=== PATIENT | male | born 1945 | race Caucasian/White ===

== ENCOUNTER 2023-03-15 10:23 | Inpatient (IN) | payer OTHER ==
[~2023-03-15] VITALS: Ht 167.6 cm; Wt 100.0 kg
[2023-03-15] MEDS ORDERED: FUROSEMIDE 40 MG/4 ML VIAL IV ONE ×3 (10:45→22:00)
[2023-03-15 11:05] LABS: Basophils # (auto) 0 10 ^3/uL (0-0.2); Basophils % (auto) 0.1 % (0.0-2.0); Eosinophils # (auto) 0 10 ^3/uL (0-0.8); Hematocrit 35.8 % (41.0-53.0); Hemoglobin 11.2 g/dL (13.5-17.5); Lymphocytes # (auto) 0.4 10 ^3/uL (0.4-5.4); Lymphocytes % (auto) 4.6 % (10.0-50.0); Mean Corpuscular Hemoglobin 27.4 pg (28.0-32.0); Mean Corpuscular Hgb Conc. 31.3 g/dL (32.0-36.0); Mean Corpuscular Volume 87.8 fL (80.0-100.0); Monocytes # (auto) 0.7 10 ^3/uL (0-1.3); Monocytes % (auto) 7.3 % (0.0-12.0); Red Blood Cells 4.08 10^6/uL (4.5-5.90); White Blood Cell 9.1 10^3/uL (4.4-10.8)
[2023-03-15 11:16] LABS: Alanine Aminotransferase 23 U/L (7-40); Albumin 3.5 g/dL (3.2-4.8); Alkaline Phosphatase 86 U/L (46-116); Anion Gap 7 (5-15); Aspartate Aminotransferase 27 U/L (13-40); BUN/Creatinine Ratio 23.9 (10.0-20.0); Blood Urea Nitrogen 26 mg/dL (9-23); Calcium 8.1 mg/dL (8.7-10.4); Carbon Dioxide 29 mmol/L (20-30); Chloride 104 mmol/L (98-107); Glucose 120 mg/dL (74-106); Lipase 24 U/L (12-53); Magnesium 1.9 mg/dL (1.6-2.6); Potassium 3.1 mmol/L (3.5-5.1); Sodium 140 mmol/L (136-145); Total Protein 6.1 g/dL (5.7-8.2)
[2023-03-15 11:20] LABS: INR 1.46 (0.9-1.15)
[2023-03-15 11:40] VITALS: PULSE 92; RESP 18; O2SAT 94
[2023-03-15] MEDS ORDERED: POTASSIUM EFFERVESENT TAB 25 MEQ PO ONE (12:00)
[2023-03-15] MEDS ORDERED: hydrALAZINE HCL 20 MG/ML VL IV PRN (12:30)
[2023-03-15] MEDS ORDERED: MORPHINE SULFATE INJ 2 MG/ml SYRG IV PRN (12:30)
[2023-03-15] MEDS ORDERED: NITROGLYCERIN 0.4 MG SL TAB SL PRN (12:30)
[2023-03-15] MEDS ORDERED: cefTRIAXone 1GM/50ML D5W 50 ML IV ONE (12:30)
[2023-03-15] MEDS ORDERED: LIDOCAINE 2% JELLY 11ml (GLYDO) ONE (13:04)
[2023-03-15] MEDS ORDERED: LIDOCAINE 2% JELLY 11ml (GLYDO) UR ONE (13:15)
[2023-03-15 13:46] LABS: Base Excess 2.4 mmol/L (-2.0-2.0)
[2023-03-15 13:49] LABS: Urine Bacteria NONE SEEN /hpf (None Seen); Urine Blood TRACE /uL (Negative); Urine Clarity Clear (Clear); Urine Color Yellow (Yellow); Urine Hyaline Cast MOD /lpf (0 - 2); Urine Mucus FEW (None Seen); Urine Protein, UAD 2+ (Negative); Urine WBC 2 /hpf (0 - 3)
[2023-03-15] MEDS: AZITHROMYCIN 500MG/ 250ML 250 ML IV SCH (14:28)
[2023-03-15 15:03] LABS: LDL Cholesterol 37 mg/dL (< 100); Triglycerides 62 mg/dL (< 150)
[2023-03-15 15:05] LABS: Cholesterol 87 mg/dL (< 200); HDL Cholesterol 34 mg/dL (40-59)
[2023-03-15] MEDS ORDERED: AMIODARONE BOLUS KIT 100 ML IV ONE (19:15)
[2023-03-15 19:40] VITALS: PULSE 89; RESP 20; O2SAT 96
[2023-03-15 20:25] LABS: COVID19 ANTIGEN SOFIA FIA NEGATIVE (NEGATIVE)
[2023-03-15 20:26] LABS: Rapid Influenza A Negative (Negative); Rapid Influenza B Negative (Negative)
[2023-03-15] MEDS: APIXABAN 5 MG TAB PO SCH (22:18)
[2023-03-15] MEDS: LISINOPRIL 10 MG TAB PO SCH (22:18)
[2023-03-15] MEDS: CARVEDILOL 3.125 MG TAB PO SCH (22:18)
[2023-03-15] MEDS: AMIODARONE HCL 200 MG TAB PO SCH (22:18)
[2023-03-15 23:36] VITALS: BP 110/50; PULSE 74; RESP 18; TEMP 96.6; O2SAT 97
[2023-03-15] MEDS ORDERED: TAMS0.4C36 PO (23:58)
[2023-03-15] MEDS ORDERED: LOSA25TA5 (23:58)
[2023-03-15] MEDS ORDERED: SIMV40TA18 PO (23:58)
[2023-03-15] MEDS ORDERED: APIX5TAB PO (23:58)
[2023-03-15] MEDS ORDERED: CITA-77 PO (23:58)
[2023-03-16] VITALS (7 sets, daily range): BP systolic 125–160; BP diastolic 45–71; PULSE 63–109; RESP 16–20; TEMP 97.7–98.1; O2SAT 94–99
[2023-03-16] MEDS ORDERED: FURO1TAB33 PO
[2023-03-16 06:54] LABS: Basophils # (auto) 0 10 ^3/uL (0-0.2); Basophils % (auto) 0.1 % (0.0-2.0); Eosinophils # (auto) 0 10 ^3/uL (0-0.8); Hemoglobin 10.1 g/dL (13.5-17.5); Lymphocytes # (auto) 0.8 10 ^3/uL (0.4-5.4); Neutrophils # (auto) 6.8 10 ^3/uL (1.6-8.6)
[2023-03-16 06:56] LABS: Hematocrit 32.7 % (41.0-53.0); Lymphocytes % (auto) 9.4 % (10.0-50.0); Mean Corpuscular Hemoglobin 26.8 pg (28.0-32.0); Mean Corpuscular Hgb Conc. 30.8 g/dL (32.0-36.0); Mean Corpuscular Volume 87.1 fL (80.0-100.0); Monocytes # (auto) 0.6 10 ^3/uL (0-1.3); Monocytes % (auto) 7.5 % (0.0-12.0); Red Blood Cells 3.76 10^6/uL (4.5-5.90); Red Cell Distribution Width 17.3 % (11.8-14.3); White Blood Cell 8.2 10^3/uL (4.4-10.8)
[2023-03-16 06:57] LABS: Chloride 103 mmol/L (98-107); Sodium 141 mmol/L (136-145)
[2023-03-16 06:58] LABS: Anion Gap 5 (5-15); Calcium 7.9 mg/dL (8.7-10.4); Carbon Dioxide 33 mmol/L (20-30)
[2023-03-16 07:03] LABS: BUN/Creatinine Ratio 19.2 (10.0-20.0); Blood Urea Nitrogen 20 mg/dL (9-23); Glucose 97 mg/dL (74-106)
[2023-03-16] MEDS ORDERED: INFLUENZA QUAD 2023-2024 0.5 ML SYRG IM ONE (07:15)
[2023-03-16] MEDS ORDERED: POTASSIUM CHL 20 Meq TABLET PO ONE (08:00)
[2023-03-16] MEDS: APIXABAN 5 MG TAB PO SCH ×2 (09:04→20:46)
[2023-03-16] MEDS: cefTRIAXone 1GM/50ML D5W 50 ML IV SCH (09:04)
[2023-03-16] MEDS: AMIODARONE HCL 200 MG TAB PO SCH ×2 (09:05→20:45)
[2023-03-16] MEDS: CARVEDILOL 3.125 MG TAB PO SCH ×2 (09:06→20:46)
[2023-03-16] MEDS: LISINOPRIL 10 MG TAB PO SCH ×2 (09:06→20:46)
[2023-03-16] MEDS: AZITHROMYCIN 500MG/ 250ML 250 ML IV SCH (10:04)
[2023-03-16] MEDS: FUROSEMIDE 40 MG/4 ML VIAL IV SCH (17:15)
[2023-03-17] VITALS (7 sets, daily range): BP systolic 134–148; BP diastolic 53–63; PULSE 62–69; RESP 18–20; TEMP 36.6; O2SAT 98–100
[2023-03-17] MEDS: FUROSEMIDE 40 MG/4 ML VIAL IV SCH ×2 (06:00→17:46)
[2023-03-17 06:58] LABS: Basophils # (auto) 0 10 ^3/uL (0-0.2); Eosinophils # (auto) 0 10 ^3/uL (0-0.8); Hemoglobin 10.5 g/dL (13.5-17.5); Lymphocytes # (auto) 0.9 10 ^3/uL (0.4-5.4); White Blood Cell 8.9 10^3/uL (4.4-10.8)
[2023-03-17 07:01] LABS: Anion Gap 9 (5-15); Carbon Dioxide 29 mmol/L (20-30); Chloride 103 mmol/L (98-107); Potassium 3.7 mmol/L (3.5-5.1); Sodium 141 mmol/L (136-145)
[2023-03-17 07:02] LABS: Calcium 8.1 mg/dL (8.7-10.4)
[2023-03-17 07:06] LABS: Eosinophils % (auto) 0.2 % (0.0-7.0); Glucose 95 mg/dL (74-106); Hematocrit 33.9 % (41.0-53.0); Mean Corpuscular Hemoglobin 27.7 pg (28.0-32.0); Mean Corpuscular Volume 89.3 fL (80.0-100.0); Monocytes # (auto) 0.7 10 ^3/uL (0-1.3); Monocytes % (auto) 7.8 % (0.0-12.0); Neutrophils # (auto) 7.3 10 ^3/uL (1.6-8.6); Nucleated Red Blood Cells % 0.2 %; Red Cell Distribution Width 18.1 % (11.8-14.3)
[2023-03-17 07:07] LABS: BUN/Creatinine Ratio 20.5 (10.0-20.0); Blood Urea Nitrogen 23 mg/dL (9-23)
[2023-03-17] MEDS: APIXABAN 5 MG TAB PO SCH ×2 (08:59→21:24)
[2023-03-17] MEDS: cefTRIAXone 1GM/50ML D5W 50 ML IV SCH (08:59)
[2023-03-17] MEDS: AMIODARONE HCL 200 MG TAB PO SCH ×2 (08:59→21:24)
[2023-03-17] MEDS: CARVEDILOL 3.125 MG TAB PO SCH ×2 (09:00→21:25)
[2023-03-17] MEDS: AZITHROMYCIN 500MG/ 250ML 250 ML IV SCH (09:32)
[2023-03-17] MEDS: LISINOPRIL 10 MG TAB PO SCH ×2 (10:22→21:25)
== END 2023-03-17 22:53 | DRG 189 ==
LOC: ER 10:23 → TELE 12:34 → TELE-CENTR 23:00
PROVIDERS: ADMIT Internal Medicine; ATTEND Student in an Organized Health Care Education/Training Program
DX: J96.01 Acute respiratory failure with hypoxia (principal); J15.9 Unspecified bacterial pneumonia; I50.23 Acute on chronic systolic (congestive) heart failure; D68.59 Other primary thrombophilia; I11.0 Hypertensive heart disease with heart failure; I48.91 Unspecified atrial fibrillation; Z23 Encounter for immunization; D64.9 Anemia, unspecified; E78.5 Hyperlipidemia, unspecified; E87.6 Hypokalemia; F32.9 Major depressive disorder, single episode, unspecified; I08.0 Rheumatic disorders of both mitral and aortic valves; I77.810 Thoracic aortic ectasia; N30.90 Cystitis, unspecified without hematuria; Z82.3 Family history of stroke; Z20.822 Contact with and (suspected) exposure to COVID-19
CPT/HCPCS: 36415; 36600; 71045; 71250; 80048; 80053; 80061; 81001; 82805; 83036; 83690; 83735; 83880; 84484; 85025; 85610; 87040; 87426; 87804; 90686; 93005; 93306; 96365; 96375; 97163; 99291; G0378; J0696

== ENCOUNTER 2023-03-24 21:56 | Emergency (ER) | payer OTHER ==
[~2023-03-24] VITALS: Ht 167.6 cm; Wt 93.5 kg
[~2023-03-24 21:56] MED LIST: APIX5TAB PO; CITA-77 PO; FURO1TAB33 PO; LOSA25TA5; SIMV40TA18 PO; TAMS0.4C36 PO
[2023-03-24] MEDS ORDERED: FUROSEMIDE 40 MG/4 ML VIAL IV ONE (22:15)
[2023-03-24 22:29] LABS: Basophils # (auto) 0 10 ^3/uL (0-0.2); Eosinophils # (auto) 0 10 ^3/uL (0-0.8); Hemoglobin 10.9 g/dL (13.5-17.5); Monocytes # (auto) 0.7 10 ^3/uL (0-1.3); Red Cell Distribution Width 18.6 % (11.8-14.3)
[2023-03-24 22:30] VITALS: PULSE 62; RESP 22; O2SAT 99
[2023-03-24 22:30] LABS: Basophils % (auto) 0.3 % (0.0-2.0); Eosinophils % (auto) 0.2 % (0.0-7.0); Hematocrit 35.3 % (41.0-53.0); Lymphocytes # (auto) 0.6 10 ^3/uL (0.4-5.4); Lymphocytes % (auto) 6.1 % (10.0-50.0); Mean Corpuscular Hemoglobin 26.7 pg (28.0-32.0); Mean Corpuscular Hgb Conc. 30.8 g/dL (32.0-36.0); Mean Corpuscular Volume 86.9 fL (80.0-100.0); Neutrophils # (auto) 8.4 10 ^3/uL (1.6-8.6); Neutrophils % (auto) 86.4 % (37.0-80.0); Nucleated Red Blood Cells % 0.1 %; Red Blood Cells 4.06 10^6/uL (4.5-5.90); White Blood Cell 9.7 10^3/uL (4.4-10.8)
[2023-03-24 22:46] LABS: Alanine Aminotransferase 192 U/L (7-40); Albumin 3.4 g/dL (3.2-4.8); Alkaline Phosphatase 113 U/L (46-116); Anion Gap 4 (5-15); Aspartate Aminotransferase 291 U/L (13-40); BUN/Creatinine Ratio 21.6 (10.0-20.0); Blood Urea Nitrogen 37 mg/dL (9-23); Calcium 8.4 mg/dL (8.7-10.4); Carbon Dioxide 30 mmol/L (20-30); Chloride 102 mmol/L (98-107); Glucose 141 mg/dL (74-106); Magnesium 2.2 mg/dL (1.6-2.6); Sodium 136 mmol/L (136-145)
[2023-03-24 22:47] LABS: INR 1.76 (0.9-1.15); Partial Thromboplastin Time 32.5 SEC (24.5-34.5); Prothrombin Time 17.8 sec (9.3-11.8); Total Protein 6.5 g/dL (5.7-8.2)
[2023-03-24 22:51] LABS: Potassium 5.6 mmol/L (3.5-5.1)
[2023-03-25 01:56] LABS: Urine WBC None Seen /hpf (0 - 3)
[2023-03-25 02:03] LABS: Urine Bacteria NONE SEEN /hpf (None Seen); Urine Blood Negative /uL (Negative); Urine Clarity Clear (Clear); Urine Color Colorless (Yellow); Urine Hyaline Cast FEW /lpf (0 - 2); Urine Protein, UAD Negative (Negative); Urine Specific Gravity 1.007 (1.001-1.035); Urine Urobilinogen Normal (Negative)
[2023-03-25] MEDS ORDERED: FUROSEMIDE 40 MG/4 ML VIAL IV ONE (05:15)
[2023-03-25 06:25] LABS: Chloride 100 mmol/L (98-107); Potassium 4.9 mmol/L (3.5-5.1); Sodium 139 mmol/L (136-145)
[2023-03-25 06:26] LABS: Anion Gap 7 (5-15); Carbon Dioxide 32 mmol/L (20-30)
[2023-03-25 06:31] LABS: Glucose 119 mg/dL (74-106)
[2023-03-25 06:32] LABS: BUN/Creatinine Ratio 26.7 (10.0-20.0); Blood Urea Nitrogen 44 mg/dL (9-23)
[2023-03-25 08:00] VITALS: PULSE 70; RESP 20; TEMP 97.3; O2SAT 96
[2023-03-25] MEDS ORDERED: FUROSEMIDE 20 MG/2 ML VIAL IV ONE (17:00)
[2023-03-25 22:48] VITALS: PULSE 69; RESP 22; O2SAT 97
[2023-03-26 07:59] VITALS: PULSE 85; RESP 24; O2SAT 94
[2023-03-26 12:00] VITALS: BP 173/64; PULSE 74; RESP 25; O2SAT 94
== END 2023-03-26 15:13 | disposition home or self-care (01) ==
LOC: ER 21:56 → EDBD 21:56 → ER 03-26 15:13
DX: J18.9 Pneumonia, unspecified organism (principal); J90 Pleural effusion, not elsewhere classified; J81.1 Chronic pulmonary edema; R06.02 Shortness of breath; I11.0 Hypertensive heart disease with heart failure; I50.9 Heart failure, unspecified; E11.9 Type 2 diabetes mellitus without complications; Z66 Do not resuscitate; Z88.6 Allergy status to analgesic agent
CPT/HCPCS: 36415; 71045; 80048; 80053; 81001; 83605; 83735; 83880; 84484; 85025; 85610; 85730; 93005; 96374; 96376; 99291; J1940